=== PATIENT | male | born 1975 | race Caucasian/White ===

== ENCOUNTER 2018-06-01 11:58 | Emergency (ER) | payer MEDICAID ==
[~2018-06-01] VITALS: Ht 190.5 cm; Wt 106.3 kg
[2018-06-01 12:36] VITALS: BP 170/98
--- NOTE | 2018-06-01 12:55 | NUR ---
PT AMBULATORY TO ROOM WITH STEADY GAIT.
--- NOTE | 2018-06-01 13:05 | NUR ---
Assumed care of patient. C/O cough with green sputum and sinus pressure. A&Ox4, speech clear, steady gait. Will continue to monitor.
--- NOTE | 2018-06-01 14:02 | NUR ---
Patient/Caregiver given discharge instructions and they have confirmed that they understand the instructions. Patient ambulatory with steady gait.
== END 2018-06-01 14:03 | disposition home or self-care (01) ==
LOC: ED 13:57
DX: J06.9 Acute upper respiratory infection, unspecified (principal); F32.9 Major depressive disorder, single episode, unspecified; J45.909 Unspecified asthma, uncomplicated; Z87.891 Personal history of nicotine dependence
CPT/HCPCS: 71046; 99283

== ENCOUNTER 2019-04-04 22:52 | Emergency (ER) | payer MEDICAID ==
[~2019-04-04] VITALS: Ht 190.5 cm; Wt 112.9 kg
[2019-04-04 23:29] LABS: BASOPHILS # (AUTO) 0.04 x10^3/uL (0-0.1); BASOPHILS % (AUTO) 1 % (0-1); EOSINOPHILS # (AUTO) 0.11 x10^3/uL (0-0.4); EOSINOPHILS % (AUTO) 1 % (1-7); LYMPHOCYTES # (AUTO) 2.67 x10^3/uL (1-3.4); LYMPHOCYTES % (AUTO) 35 % (22-44); MD NO; MEAN CORPUSCULAR HEMOGLOBIN 27.6 pg (27.5-34.5); MEAN CORPUSCULAR HGB CONC 32.8 g/dL (33.2-36.2); MEAN CORPUSCULAR VOLUME 84.2 fL (81-97); MEAN PLATELET VOLUME 8.1 fL (7.4-10.4); MONOCYTES # (AUTO) 0.48 x10^3/uL (0.2-0.8); MONOCYTES % (AUTO) 6 % (2-9); NEUTROPHILS # (AUTO) 4.38 x10^3/uL (1.8-6.8); NEUTROPHILS % (AUTO) 57 % (42-75); PLATELET COUNT 214 x10^3/uL (130-400); RED BLOOD COUNT 5.32 x10^6/uL (4.38-5.82); RED CELL DISTRIBUTION WIDTH 14.3 % (9.4-14.8)
[2019-04-04] MEDS ORDERED: SODIUM CHLORIDE FLUSH 10ML SYR IVF ONE (23:30)
[2019-04-04] MEDS ORDERED: DICYCLOMINE 20 MG TABLET PO ONE (23:30)
[2019-04-04] MEDS ORDERED: SODIUM CHLORIDE 0.9% 1,000ML IVBOLUS ONE (23:30)
[2019-04-04] MEDS ORDERED: KETOROLAC 30 MG/1 ML IVPush ONE (23:30)
[2019-04-04 23:36] LABS: ALANINE AMINOTRANSFERASE 33 U/L (12-78); ALBUMIN 3.6 g/dL (3.4-5.0); ANION GAP 4 mmol/L (5-15); CALCIUM 8.6 mg/dL (8.5-10.1); CHLORIDE 111 mmol/L (98-107); CREATININE 1.07 mg/dL (0.7-1.3)
[2019-04-04 23:38] LABS: ALKALINE PHOSPHATASE 73 U/L (45-117); BILIRUBIN,TOTAL 0.5 mg/dL (0.2-1.0); TOTAL PROTEIN 7.3 g/dL (6.4-8.2)
[2019-04-04 23:42] LABS: MICROSCOPIC AUTO
[2019-04-04 23:44] LABS: CULTURE INDICATED? YES
[2019-04-05] MEDS ORDERED: KETOROLAC 30 MG/1 ML ONE (00:16)
[2019-04-05] MEDS ORDERED: DICYCLOMINE 20 MG TABLET ONE (00:16)
[2019-04-05 00:17] VITALS: BP 156/102
== END 2019-04-05 01:12 | disposition home or self-care (01) ==
LOC: ED 23:18
DX: R10.12 Left upper quadrant pain (principal); R60.0 Localized edema; M54.5 Low back pain; F32.9 Major depressive disorder, single episode, unspecified; J45.909 Unspecified asthma, uncomplicated; F17.200 Nicotine dependence, unspecified, uncomplicated; R50.9 Fever, unspecified
CPT/HCPCS: 36415; 74021; 80053; 81001; 83690; 85025; 87086; 93005; 96374; 99284; J1885; J7030

== ENCOUNTER 2019-11-11 14:29 | Emergency (ER) | payer MEDICAID ==
[~2019-11-11] VITALS: Ht 190.5 cm; Wt 103.0 kg
[2019-11-11 14:36] VITALS: BP 156/98
--- NOTE | 2019-11-11 15:21 | NUR ---
PT TO CT AT THIS TIME.
--- NOTE | 2019-11-11 15:55 | NUR ---
[facility] NOTIFIED OF INTENT TO DISCHARGE PATIENT.
== END 2019-11-11 16:15 | disposition home or self-care (01) ==
LOC: ED 16:01
DX: S09.90XA Unspecified injury of head, initial encounter (principal); J45.909 Unspecified asthma, uncomplicated; W20.8XXA Other cause of strike by thrown, projected or falling object, initial encounter; Y93.89 Activity, other specified; Y92.89 Other specified places as the place of occurrence of the external cause; Y99.0 Civilian activity done for income or pay
CPT/HCPCS: 70450; 99284

== ENCOUNTER 2020-06-30 20:34 | Emergency (ER) | payer MEDICAID ==
[~2020-06-30] VITALS: Ht 193 cm; Wt 114.0 kg
--- NOTE | 2020-06-30 20:40 | NUR ---
NOT IN LOBBY WHEN CALLED
--- NOTE | 2020-06-30 21:18 | NUR ---
PT CAME OUT INTO [facility] STATED "THAT HE REFUSED TO GET A XRAY. STATED "I JUST WANT A COVID SWAB"
[2020-06-30 21:35] VITALS: BP 140/72
--- NOTE | 2020-06-30 21:37 | NUR ---
PT COVID SWABED AND SENT HOME PER PATIENT REQUEST. IF S&S WORSEN RETURN TO THE ER
== END 2020-06-30 21:39 | disposition home or self-care (01) ==
LOC: ED 21:13
DX: J18.9 Pneumonia, unspecified organism (principal); Z20.822 Contact with and (suspected) exposure to COVID-19; R05 Cough; R06.02 Shortness of breath; R00.0 Tachycardia, unspecified; R09.81 Nasal congestion; J45.909 Unspecified asthma, uncomplicated; F17.210 Nicotine dependence, cigarettes, uncomplicated
CPT/HCPCS: 87635; 93005; 99284; 99406